=== PATIENT | female | born 1970 | race Caucasian/White ===

== ENCOUNTER 2024-09-05 20:49 | Emergency (ER) | payer BC ==
[2024-09-05] MEDS: SODIUM CHLORIDE 1,000 ML IV STA (21:17)
[2024-09-05] MEDS ORDERED: ACETAMINOPHEN INJECTION 100 ML ONE (21:19)
[2024-09-05] MEDS ORDERED: ONDANSETRON 4 MG/2 ML VIAL ONE (21:20)
[2024-09-05] MEDS: ACETAMINOPHEN 1000 MG/100 ML BAG IVPB ONE (21:22)
[2024-09-05] MEDS: ONDANSETRON 4 MG/2 ML VIAL IVPUSH ONE (21:22)
[2024-09-05 21:28] VITALS: BP 146/84; PULSE 69; RESP 20; TEMP 99; BMI 22.3
[2024-09-05 21:35] LABS: BASOPHILS # 0.01 x10^3/uL (0.01-0.08); EOSINOPHIL % 1.3 % (0.7-5.8); EOSINOPHILS # 0.08 x10^3/uL (0.04-0.36); HEMATOCRIT 35.6 % (34.1-44.9); HEMOGLOBIN 12.1 g/dL (11.2-15.7); MONOCYTE # 0.47 x10^3/uL (0.24-0.86); MONOCYTE % 7.8 % (4.7-12.5); PLATELET COUNT 300 x10^3/uL (182-369); RDW 13.2 % (12.3-16.6)
[2024-09-05 21:45] LABS: ALBUMIN 3.8 g/dl (3.4-5.0); BILIRUBIN,TOTAL 0.7 mg/dl (0.2-1); CALCIUM 8.3 mg/dl (8.5-10.1); CREATININE 0.7 mg/dl (0.6-1.3); POTASSIUM 3.4 mmol/L (3.5-5.1); TOT PROT 5.8 g/dl (6.4-8.2)
[2024-09-05] MEDS ORDERED: KETOROLAC TROMETHAMINE 15 MG/ML VIAL ONE (22:57)
[2024-09-05 22:59] LABS: HCV DIAGNOSTIC IN-HOUSE W/RFLX NON-REACTIVE (NONREACTIVE); HIV INTERPRETATION NEGATIVE (NEGATIVE)
[2024-09-05] MEDS: KETOROLAC TROMETHAMINE 30 MG/1 ML VIAL IVPUSH ONE (22:59)
[2024-09-05] MEDS: SODIUM CHLORIDE 0.9% 500 ML INFUS.BAG IV ONE (23:14)
== END 2024-09-05 23:55 | disposition home or self-care (01) ==
LOC: FER 20:49
PROC: 3E033NZ Introduction of Analgesics, Hypnotics, Sedatives into Peripheral Vein, Percutaneous Approach (ICD-10-PCS; principal; 2024-09-05)
PROC: 3E0333Z Introduction of Anti-inflammatory into Peripheral Vein, Percutaneous Approach (ICD-10-PCS; 2024-09-05)
PROC: 3E033GC Introduction of Other Therapeutic Substance into Peripheral Vein, Percutaneous Approach (ICD-10-PCS; 2024-09-05)
PROC: 3E0337Z Introduction of Electrolytic and Water Balance Substance into Peripheral Vein, Percutaneous Approach (ICD-10-PCS; 2024-09-05)
DX: R11.2 Nausea with vomiting, unspecified (principal); R19.7 Diarrhea, unspecified; R10.84 Generalized abdominal pain
CPT/HCPCS: 36415; 74177-TC; 80053; 81003; 81015; 85025; 86803; 87389; 99285-25; J0131; Q9967